=== PATIENT | female | born 1980 | race Caucasian/White ===

== ENCOUNTER → 2016-11-12 | Outpatient (CLI) | payer OTHER ==
--- NOTE | ~2016-11-12 | CT4 ---
[facility]. [facility] A Service of [facility] RADIOLOGY TEXT RESULTS PATIENT: SOLEDAD HEMPHILL LOCATION: [facility] : 78 UNIT #: [id number] AGE: [address]: Madeline Moffett SEX: F ORDER DR: [id number] [address] [address] [id number] O MR#: [id number] Acc #: [id number] NAME: SOLEDAD HEMPHILL : 1980 SEX: F STUDY DATE/TIME: 11/12/2016 13:02 UNIT: [facility] ROOM: STUDY DESCRIPTION: CT Abd and Pelv Wo Cont Attending Physician: Madeline Moffett A.P.R.N. Referring Physician: Madeline Moffett A.P.R.N. Ordering Physician: Madeline Moffett A.P.R.N. Primary Care Physician: Madeline Moffett A.P.R.N. MEDICAL IMAGING REPORT This report is preliminary unless electronic signature is present. EXAM CT abdomen and pelvis without contrast INDICATION Right upper quadrant pain and right flank pain for 1 week. Scanned elsewhere on demonstrating enlarged liver. TECHNIQUE CT abdomen and pelvis was performed without contrast. Coronal and sagittal reformatted images were obtained. No comparison studies are available at this time. This CT exam was performed with one or more of the following radiation dose reduction techniques: automatic exposure control, adjustment of mA and/or kV according to patient size, and iterative reconstruction. FINDINGS The lung bases are clear. There is diffuse fatty infiltration of the liver. The gallbladder is somewhat distended. There may be a minuscule gallstone within the gallbladder fundus. Spleen unremarkable. Kidneys unremarkable. Adrenal glands unremarkable. Pancreas demonstrates some fatty infiltration. PELVIS: The colon is unremarkable. Normal appendix. There is no free fluid. The bone windows are unremarkable. IMPRESSION 1. Diffuse fatty infiltration of the liver. 2. Question very tiny gallstone in the gallbladder fundus. [facility] A Service of [facility] RADIOLOGY TEXT RESULTS PATIENT: SOLEDAD HEMPHILL LOCATION: [facility] : 78 UNIT #: [id number] AGE: [address]: Madeline Moffett SEX: F ORDER DR: Dictated by... Sukh Cooley M.D. THIS IS AN ELECTRONICALLY VERIFIED REPORT Sukh Cooley M.D. at 11/14/2016 2:19 PM ALHAJI/hyun TD: 11/13/2016 22:17 JOB #: [id number] MEDICAL IMAGING REPORT Page 1 of 1
== END | disposition home or self-care (01) ==
LOC: SRAD 12:34 → SCT 13:00
DX: K80.20 Calculus of gallbladder without cholecystitis without obstruction (principal); R10.9 Unspecified abdominal pain; K76.0 Fatty (change of) liver, not elsewhere classified
CPT/HCPCS: 74176